=== PATIENT | female | born 2000 | race African-American/Black ===

== ENCOUNTER 2024-11-15 20:51 | Emergency (ER) | payer SELFPAY ==
--- NOTE | ~2024-11-15 | XR_ITS ---
EXAM: XR ankle LT min 3V DATE: 11/15/2024 21:27 HISTORY: LEFT LATERAL ANKLE PAIN, HISTORY OF SPRAINS . COMPARISON: None available. FINDINGS: Normal mineralization. No fracture or dislocation. No lytic or blastic lesion. Joint space s are maintained. No erosion or periosteal change. Soft tissues within normal limits. IMPRESSION: No acute osseous finding in the left ankle. Reviewed, dictated and finalized at location K.
[2024-11-15 20:55] VITALS: BP 134/97; PULSE 87; RESP 16; O2SAT 100
[2024-11-15 20:59] VITALS: BP 134/97; PULSE 71; RESP 18; TEMP 36.8; O2SAT 100
--- NOTE | 2024-11-15 21:26 | ED_ITS ---
HPI - Extremity Injury (Lower) General Chief Complaint: Extremity Injury, Lower Stated Complaint: L ANKLE INJURY Time Seen by Provider: 11/15/24 21:05 Source: patient and other Mode of arrival: ambulatory Limitations: no limitations History of Present Illness HPI Narrative: Patient presents with left ankle pain after playing kickball. This occurred at approximately 4:30 p.m.. She states she was running to catch ball and she bumped into her teammate and then stumbled on the uneven ground. Exact mechanism is unknown, Unknown if she experienced inversion or eversion. 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 No surgical intervention. She denies any paresthesias. She has not yet taken anything for pain. She has only been icing it. She states at baseline she does not in general like to take pain medicine. Pain is along the lateral aspect of the malleolus. Denies pain throughout calf or proximal tib-fib. Related Data Allergies Allergy/AdvReac Type Severity Reaction Status Date / Time No Known Allergies Allergy Verified 11/15/24 20:52 [facility] Past Medical History Medical History No significant medical problems Social History Social History Social History: Active, plays sports Exam Narrative: GENERAL: Well-appearing, well-nourished, and in no acute distress. HEAD: Normocephalic, atraumatic. EYES: Non injected, non icteric ENT: Nares clear, no rhinorrhea or epistaxis. Gross auditory acuity intact. NECK: Supple. No meningismus. CHEST: Speaking in full sentences. No respiratory distress. HEART: Regular rate and rhythm. Strong DP pulse. ABDOMEN: Soft, nondistended. No rigidity or guarding. Not peritoneal EXTREMITIES: Normal range of motion. 5/5 strength left ankle inversion/eversion/dorsiflexion/plantar flexion. Mild swelling along left lateral malleolus without obvious bony deformity. No tenderness to palpation along proximal calf. No tenderness with calf squeeze. SKIN: Warm, dry, no rash including no laceration/abrasion/ecchymosis . NEURO: No focal deficits. Alert and oriented. Answering questions. Following commands. Normal speech without aphasia or dysarthria. Sensation intact throughout foot and ankle PSYCH: Normal mood and affect. Course Vital Signs Vital signs: Vital Signs Pulse Rate 87 11/15/24 20:55 Respiratory Rate 16 11/15/24 20:55 Blood Pressure 134/97 H 11/15/24 20:55 Pulse Oximetry 100 11/15/24 20:55 Oxygen Delivery Room Air 11/15/24 20:55 Temperature 98 F 11/15/24 22:29 Pulse Rate 70 11/15/24 22:29 Respiratory Rate 16 11/15/24 22:29 Blood Pressure 111/68 11/15/24 22:29 Pulse Oximetry 100 11/15/24 22:29 Oxygen Delivery Room Air 11/15/24 20:55 MDM - Extremity Injury (Lower) MDM Narrative Medical decision making narrative: Patient presents with pain along the left lateral malleolus of her ankle. She sustained an injury while playing kickball at 4:30 p.m.. She states 6 years ago at electric nurse told her she had a sprain/strain/torn ligaments but no previous surgical intervention. In the emergency department she is afebrile with vital signs notable for elevated diastolic blood pressure. Analgesic medication had been ordered for patient but she declined. Negative plain film imaging. Suspect sprain. Patient provided Steve wrap and advised on rest, ice, compression, elevation. Advised follow-up with primary care physician. Provided referral/contact information for 1 if she does not have 1. Provided prescriptions for [id number] analgesics medications. Otherwise stable for discharge. Differential Diagnosis Differential diagnosis: Likely ankle sprain and strain and ankle fracture (dislocation) Imaging Data Radiologist's impression: Impressions Ankle X-Ray 11/15/24 21:53 IMPRESSION: No acute osseous finding in the left ankle. Discharge Plan Discharge Clinical Impression: Left ankle sprain Qualifiers: Encounter type: initial encounter Involved ligament of ankle: unspecified ligament Qualified Code(s): S93.402A - Sprain of unspecified ligament of left ankle, initial encounter Patient Disposition: Home Condition: Stable Instructions: Antibiotic Form, Ankle Sprain (ED), P.R.I.C.E. Treatment (ED) Additional Instructions: No broken bone (fracture) or dislocation. You likely have an ankle sprain. Remember R-I-C-E (rest, ice, compression, and elevation). This should improve over the next 3-5 days but if you are continuing to have symptoms follow-up with your primary care physician as you may require physical therapy, alternative pain medication, advanced imaging, etc.. If You do not have a primary care physician the name of the doctors listed below. Acetaminophen/Tylenol (maximum 4000 mg per day) is safe to take with NSAIDs (ibuprofen/Motrin) for pain relief. Patient Language: [place] Prescriptions: New ibuprofen 600 mg tablet 600 mg PO TID PRN (Reason: pain) Qty: 30 0RF acetaminophen 500 mg capsule 1,000 mg PO Q6H PRN (Reason: pain) Qty: 30 0RF Follow-up/Referrals: Alberto Golden MD [Physician] - PHYSICIAN,ECOLOGICAL TECHNICAL OFFICER [Primary Care Provider] - Stand Alone Forms: Work/School Release IP Time of Disposition: 22:00
[2024-11-15 22:29] VITALS: BP 111/68; PULSE 70; RESP 16; TEMP 36.6; O2SAT 100
== END 2024-11-15 22:25 | disposition home or self-care (01) ==
PROVIDERS: Emergency Provider Student in an Organized Health Care Education/Training Program
DX: S93.402A Sprain of unspecified ligament of left ankle, initial encounter (principal); W51.XXXA Accidental striking against or bumped into by another person, initial encounter
CPT/HCPCS: 73610; 99283